=== PATIENT | male | born 1965 | race Caucasian/White ===

== ENCOUNTER 2023-09-07 11:26 | Day surgery (SDC) | payer OTHER ==
--- NOTE | 2023-09-05 11:51 | HP ---
DATE: 09/07/2023 HISTORY OF PRESENT ILLNESS: Patient is a 57 year-old male who presents with a left inguinal hernia. There is a small bulge in the area. He stands a lot. He has some burning sensation. He has history of repair on the right side. PAST MEDICAL HISTORY: Hypertension. CURRENT MEDICATIONS: Metoprolol, amlodipine. ALLERGIES: NEGATIVE. PAST SURGERIES: Vasectomy, tonsillectomy, right inguinal hernia. SOCIAL HISTORY: Negative. FAMILY HISTORY: Heart disease. REVIEW OF SYSTEMS: CONSTITUTIONAL: Denies fever or chills. CHEST: Denies shortness of breath. CVS: Denies chest pain. ABDOMEN: Denies abdominal pain. PHYSICAL EXAMINATION: GENERAL: No acute distress. CHEST: Nonlabored. No shortness of breath. CVS: Regular rate and rhythm. ABDOMEN: Soft. Small left inguinal hernia. IMPRESSION: 1. SMALL TO MODERATE LEFT INGUINAL HERNIA. PLAN: Left inguinal hernia repair with Dr. Mark. Nieves. This report was dictated for Dr. Nieves by Ann Serna NP.
[2023-09-07] MEDS ORDERED: EXPAREL 133 MG/10 ML VIAL IJ ONE (11:27)
[2023-09-07] MEDS ORDERED: Lactated Ringers 1,000 ML IV ONE ×2 (11:36→13:04)
[2023-09-07] MEDS: CEFAZOLIN 2 GM-D5W BAG** 2 GM/50 ML ML IV SCH (11:41)
[2023-09-07] MEDS: Lactated Ringers 1,000 ML IV SCH (11:41)
[2023-09-07] MEDS ORDERED: Sensorcaine 0.25% 10 ML ONE ×2 (13:04→13:24)
[2023-09-07] MEDS ORDERED: DIPRIVAN 200 MG/20 ML IV ONE (13:24)
[2023-09-07] MEDS ORDERED: SUBLIMAZE 100 MCG/2 ML ONE ×2 (13:24→15:16)
[2023-09-07] MEDS ORDERED: OFIRMEV 100 ML IV ONE (13:25)
[2023-09-07] MEDS ORDERED: Xylocaine-Mpf 2% 5 Ml Vial ONE (13:26)
[2023-09-07] MEDS ORDERED: Zofran 4 MG/2 ML VIAL ONE (13:26)
[2023-09-07] MEDS ORDERED: Quelicin Fliptop 200 MG/10 ML ONE (13:26)
[2023-09-07] MEDS ORDERED: Decadron 4 MG INJ ONE (13:26)
[2023-09-07] MEDS ORDERED: Zemuron 100 MG/10 ML ONE (13:28)
[2023-09-07] MEDS ORDERED: Versed 2 MG/2 ML Injection ONE (13:28)
[2023-09-07] MEDS ORDERED: BRIDION 200MG/2ML IV ONE (13:59)
[2023-09-07] MEDS ORDERED: ATROPINE SULFATE 1MG ONE (14:07)
[2023-09-07] MEDS ORDERED: Ephedrine Sulfate 50 MG/ML ONE (14:25)
--- NOTE | 2023-09-07 14:43 | OP ---
SURGERY DATE: 09/07/2023 SURGERY TIME: 1323 PREOPERATIVE DIAGNOSIS: 1. SYMPTOMATIC LEFT INGUINAL HERNIA. POSTOPERATIVE DIAGNOSIS: 1. LEFT INGUINAL HERNIA INDIRECT AND DIRECT. PROCEDURE: 1. Left inguinal herniorrhaphy with mesh, open, traditional. SURGEON: Zion Nieves M.D. ANESTHESIA: General. COMPLICATIONS: None. CONDITION: Stable. OPERATIVE PROCEDURE: Patient taken to surgery. General anesthetic. Routine prep and drape. 0.25% Marcaine. Curvilinear incision. External oblique opened. Cord skeletonized. A 3" indirect hernia sac with side off under direct visualization with a stick tie of 0 Prolene. There was a direct hernia. 1 X 4 mesh was trimmed to size. Was secured to Max's ligament. Transition suture up to Poupart's. The medial leaf was secured to the conjoined throughout. It was slid around the internal ring. The internal ring was reinforced. A suture was placed on the upper side of the internal ring and it was 1 clamp tight. This looked nice. External oblique closed with 0 Vicryl. Ryan approximated with 2-0 Vicryl. Skin closed with 4-0 Vicryl. Steri-strips applied. Sterile dressing applied. Patient tolerated the procedure satisfactory.
[2023-09-07 15:57] VITALS: RESP 16
[2023-09-07] MEDS ORDERED: MORPHINE SULFATE 2 MG INJ ONE (15:58)
[2023-09-07] MEDS: MORPHINE SULFATE 2 MG INJ IV PRN (16:00)
[2023-09-07 16:27] VITALS: BP 138/82; PULSE 75; TEMP 97.3; O2SAT 97
== END 2023-09-07 16:37 | disposition home or self-care (01) ==
LOC: SDC 11:26
PROVIDERS: ATTEND Surgery
DX: K40.90 Unilateral inguinal hernia, without obstruction or gangrene, not specified as recurrent (principal)
CPT/HCPCS: J0330; J0461; J0690; J1100; J2250; J2270; J2405; J2704; J3010